=== PATIENT | female | born 1960 | race Caucasian/White ===

== ENCOUNTER 2022-12-21 10:23 | Emergency (ER) | payer OTHER ==
[~2022-12-21] VITALS: Ht 160 cm; Wt 50.3 kg
[2022-12-21] MEDS ORDERED: IBUP-1955 PO (12:12)
[2022-12-21 13:43] VITALS: BP 122/80; TEMP 98; O2SAT 99
== END 2022-12-21 13:44 | disposition home or self-care (01) ==
LOC: ER 10:23
DX: S83.91XA Sprain of unspecified site of right knee, initial encounter (principal); S00.83XA Contusion of other part of head, initial encounter; R07.81 Pleurodynia; J45.909 Unspecified asthma, uncomplicated; Z90.710 Acquired absence of both cervix and uterus; Z79.1 Long term (current) use of non-steroidal anti-inflammatories (NSAID); V19.9XXA Pedal cyclist (driver) (passenger) injured in unspecified traffic accident, initial encounter; Y93.89 Activity, other specified; Y92.89 Other specified places as the place of occurrence of the external cause; Y99.8 Other external cause status
CPT/HCPCS: 70450; 71101; A4663